=== PATIENT | female | born 1975 | race African-American/Black ===

== ENCOUNTER 2023-10-07 18:27 | Emergency (ER) | payer BC, OTHER ==
[2023-10-07] MEDS ORDERED: Lidocaine 1% (PF) 30 ML VIAL ONE (19:39)
[2023-10-07] MEDS ORDERED: Bacitracin 1 PK ONE (19:49)
== END 2023-10-07 20:05 | disposition home or self-care (01) ==
LOC: NAV ERS 18:27
DX: S61.217A Laceration without foreign body of left little finger without damage to nail, initial encounter (principal); I10 Essential (primary) hypertension; W27.4XXA Contact with kitchen utensil, initial encounter; Y93.G1 Activity, food preparation and clean up
CPT/HCPCS: 12001; 99282; J2001

== ENCOUNTER 2023-10-15 15:30 | Emergency (ER) | payer BC | END 2023-10-15 15:50 | disposition home or self-care (01) | LOC: NAV ERS 15:30 | DX: S61.217D Laceration without foreign body of left little finger without damage to nail, subsequent encounter (principal); W18.30XD Fall on same level, unspecified, subsequent encounter ==

== ENCOUNTER 2024-11-19 23:07 | Emergency (ER) | payer BC ==
[2024-11-20 00:18] LABS: ALT (SGPT) 9 U/L (Less than 34); AST (SGOT) 41 U/L (11-34); Albumin 3.5 g/dL (3.1-4.5); Alkaline Phosphatase 48 U/L (40-110); Anion Gap 14 mmol/L (10-20); BUN (Urea Nitrogen) 13 mg/dL (7.0-18.7); Bilirubin, Total 0.2 mg/dL (0.3-1.2); Calc. Creatinine Clearance 0 mL/min (70-130); Calcium 8.4 mg/dL (7.8-10.44); Carbon Dioxide 21 mmol/L (22-29); Chloride 103 mmol/L (98-107); Estimated GFR 66; Globulin 3.5 g/dL (2.4-3.5); Glucose 123 mg/dL (70-105); Potassium 3.7 mmol/L (3.5-5.1); Sodium 134 mmol/L (136-145)
[2024-11-20 00:27] LABS: #Lymphocytes 0.9 thou/uL (1.20-3.40); #Monocytes 0.4 thou/uL (0.11-0.59); #Neutrophils 1.9 thou/uL (1.40-6.50); %Basophils 1.1 % (0.0-1.0); %Eosinophils 1.3 % (0.0-10.0); %Lymphocytes 27.5 % (21.0-51.0); %Monocytes 13.4 % (0.0-10.0); %Neutrophils 56.8 % (42.0-75.0); Hematocrit 43.2 % (36.0-47.0); Mean Corpuscular HGB CONC 30.1 g/dL (32.0-36.0); Mean Corpuscular Hemoglobin 24.5 pg (27.0-31.0); Mean Corpuscular Volume 81.4 fl (78.0-98.0); Mean Platelet Volume 9.2 fL (7.4-10.4); Platelet Count 164 10x3/uL (130-400); RBC Distribution Width 12.5 % (11.5-14.5); Red Blood Cell (RBC) Count 5.31 mill/uL (4.20-5.40); White Blood Cell (WBC) Count 3.3 10x3/uL (4.8-10.8)
== END 2024-11-20 01:00 | disposition home or self-care (01) ==
LOC: NAV ERS 23:07
DX: J11.1 Influenza due to unidentified influenza virus with other respiratory manifestations (principal); I10 Essential (primary) hypertension; Z79.899 Other long term (current) drug therapy
CPT/HCPCS: 71045; 80053; 83605; 85025; 87428; 96360